=== PATIENT | male | born 1985 | race Two or more races ===

== ENCOUNTER 2023-02-07 13:13 | Emergency (ER) | payer MEDICAID ==
[~2023-02-07] VITALS: Ht 177.8 cm; Wt 72.7 kg
[2023-02-07 13:13] VITALS: BP 126/74
[~2023-02-07 13:13] MED LIST: HYDR-4902 PO
[2023-02-07 13:59] VITALS: PULSE 68; RESP 18; O2SAT 96
== END 2023-02-07 16:00 ==
LOC: ER 13:13
DX: S82.891A Other fracture of right lower leg, initial encounter for closed fracture (principal); S92.901A Unspecified fracture of right foot, initial encounter for closed fracture; F15.10 Other stimulant abuse, uncomplicated; Z91.199 Patient's noncompliance with other medical treatment and regimen due to unspecified reason; X58.XXXA Exposure to other specified factors, initial encounter; Y93.89 Activity, other specified; Y92.89 Other specified places as the place of occurrence of the external cause; Y99.8 Other external cause status
CPT/HCPCS: 29515; 73610; 73630